=== PATIENT | female | born 1940 | race Asian ===

== ENCOUNTER 2022-10-14 18:16 | Inpatient (IN) | payer MEDICARE, OTHER ==
[~2022-10-14] VITALS: Ht 152.4 cm; Wt 64.4 kg
--- NOTE | 2022-10-14 18:45 | NUR ---
Pt BIBA from [facility] with c/o altered mentation and probable UTI per Dr. Vidales. Pt is AOx1. Denies n/v, headache. Ambulatory. Continent x2.
[2022-10-14] MEDS ORDERED: CLOP75TA33 PO (18:49)
[2022-10-14] MEDS ORDERED: GABA-532 PO (18:49)
[2022-10-14] MEDS ORDERED: LOSA100T3 PO (18:49)
[2022-10-14] MEDS ORDERED: MEMA1CAP3 PO (18:49)
[2022-10-14] MEDS ORDERED: FERR325T28 PO (18:49)
[2022-10-14] MEDS ORDERED: MULT-594 PO (18:49)
[2022-10-14] MEDS ORDERED: SODIUM CHLORIDE PO (18:49)
[2022-10-14] MEDS ORDERED: CALC1TAB30 PO (18:49)
[2022-10-14] MEDS ORDERED: ROSU10TA2 PO (18:49)
[2022-10-14] MEDS ORDERED: POLY17PO4 PO (18:49)
--- NOTE | 2022-10-14 19:10 | NUR ---
Endorsed to Vijaya MEDRANO.
[2022-10-14] MEDS ORDERED: CLON0.1T PO (19:33)
[2022-10-14] MEDS ORDERED: BISA10SU61 RC (19:33)
[2022-10-14] MEDS ORDERED: ALBU18HF2 INH (19:33)
[2022-10-14] MEDS ORDERED: ASCO500T10 PO (19:33)
[2022-10-14] MEDS ORDERED: NA P133E RC (19:33)
[2022-10-14] MEDS ORDERED: MAGN400O6 PO (19:33)
[2022-10-14] MEDS ORDERED: CHOL100045 PO (19:33)
[2022-10-14] MEDS ORDERED: MELA5TAB PO (19:33)
[2022-10-14] MEDS ORDERED: GLUC1KIT IM (19:33)
[2022-10-14] MEDS ORDERED: AMLO10TA4 PO (19:33)
[2022-10-14 21:00] LABS: *BILIRUBIN,URIN NEGATIVE (NEGATIVE); *BLOOD, URINE TRACE (NEGATIVE); *CLARITY,URINE CLEAR (CLEAR); *COLOR,URINE YELLOW (YELLOW); *KETONES,URINE NEGATIVE (NEGATIVE); *UROBILINOGEN,URINE 0.2 E.U./dl (NORMAL); LEUKOCYTE ESTERASE ,URINE 1+ (NEGATIVE); NITRITE, URINE NEGATIVE (NEGATIVE); UGLUCOSE NEGATIVE (NEGATIVE)
[2022-10-14 21:20] LABS: CREATININE 0.8 mg/dL (0.6-1.3); HEMATOCRIT 39.1 % (31.2-41.9); MEAN CORPUSCULAR HEMOGLOBIN 31.2 uug (24.7-32.8); MEAN CORPUSCULAR VOLUME 94.9 fL (75.5-95.3); PLATELET COUNT (AUTO) 290 K/uL (179-408); POTASSIUM 3.9 mmol/L (3.5-5.1)
[2022-10-14 21:36] LABS: RBC,URINE 0-3 /HPF (0-3)
[2022-10-14 21:37] LABS: BACTERIA,URINE MANY /HPF (NONE SEEN); SQUAMOUS EPITHELIAL CELL,UR FEW /HPF (NONE SEEN)
--- NOTE | 2022-10-14 21:53 | NUR ---
Patient ambulated to the bathroom 1 person assist. Voided clear yellow urine.
[2022-10-14] MEDS ORDERED: BISACODYL 10 MG SUPP.RECT RC PRN (22:00)
[2022-10-14] MEDS ORDERED: CLONIDINE HCL 0.1 MG TABLET PO PRN (22:00)
[2022-10-14] MEDS ORDERED: FLEET ENEMA 133 ML BOTTLE RC PRN (22:00)
[2022-10-14] MEDS ORDERED: MAGNESIUM HYDROXIDE 30 ML LIQUID UDC PO PRN (22:00)
--- NOTE | 2022-10-14 22:05 | NUR ---
Spoke to Lela MEDRANO. Patient will be admitted to 2nd floor Room 208
[2022-10-14] MEDS ORDERED: ONDANSETRON 4 MG/2 ML VIAL IV PRN (22:15)
[2022-10-14] MEDS ORDERED: ACETAMINOPHEN 650 MG SUPP.RECT RC PRN (22:15)
--- NOTE | 2022-10-14 23:01 | NUR ---
Called 2nd floor to give report to Tootie MEDRANO. Waiting for call back.
--- NOTE | 2022-10-14 23:15 | NUR ---
Gave report to Tootie MEDRANO
[2022-10-15] MEDS ORDERED: levoFLOXacin 500 MG/D5W 500 MG in PREMIXED 1 EACH IV SCH ×2
--- NOTE | 2022-10-15 00:01 | NUR ---
Patient taken to second floor room 208 with personal belongings. Tootie MEDRANO aware of patients arrival.
[2022-10-15 00:20] VITALS: BP 172/85
[2022-10-15] MEDS ORDERED: levoFLOXacin 500 MG/D5W 100 ML ONE (00:20)
--- NOTE | 2022-10-15 00:30 | NUR ---
Admitted a 82 years old female with Dx of Severe UTI, ALOC 2ndary to metabolic encephalopathy and possible sepsis. Patient AAO to self only but is able to follow simple direction. Mainly Tagalog speaking but can understand some Turkmen. In no apparent distress. Denies any pain or SOB. IV site on left wrist intact and patent. Routine admission care done. Plan of care initiated. Safety measure initiated and call light within reached.
[2022-10-15 05:09] VITALS: BP 174/80
--- NOTE | 2022-10-15 05:38 | NUR ---
Patient slept well since admission. Denies any pain or SOB. On O2 at 2LPM via NC in place. Noted with occasional non-productive cough. IV site on left wrist remains intact and patent. No adverse reaction noted from IV antibiotic. Needs assessed and attended to. Safety measure maintained and call light within reached.
[2022-10-15 07:10] LABS: HEMATOCRIT 38.8 % (31.2-41.9); MEAN CORPUSCULAR HEMOGLOBIN 31.5 uug (24.7-32.8); MEAN CORPUSCULAR VOLUME 95.4 fL (75.5-95.3); PLATELET COUNT (AUTO) 282 K/uL (179-408)
[2022-10-15 07:35] LABS: CREATININE 0.8 mg/dL (0.6-1.3); MAGNESIUM 2.1 mg/dL (1.8-2.4); PHOSPHOROUS 3.7 mg/dL (2.5-4.9); POTASSIUM 3.8 mmol/L (3.5-5.1)
[2022-10-15] MEDS: CLOPIDOGREL 75 MG TABLET PO SCH (08:16)
[2022-10-15] MEDS: MEMANTINE HCL 10 MG TABLET PO SCH ×2 (08:17→20:36)
[2022-10-15] MEDS: MIRALAX 17 GM POWD.PACK PO SCH (08:17)
[2022-10-15] MEDS: AMLODIPINE 10 MG TABLET PO SCH (08:17)
[2022-10-15] MEDS: ASCORBIC ACID 500 MG TABLET PO SCH ×2 (08:17→16:35)
[2022-10-15] MEDS: MULTIVITAMINS,THERAPEUTIC TABLET PO SCH (08:17)
[2022-10-15] MEDS: LOSARTAN POTASSIUM 50 MG TABLET PO SCH (08:19)
[2022-10-15] MEDS: SODIUM CHLORIDE 1,000 MG TABLET PO SCH ×2 (08:24→16:45)
[2022-10-15] MEDS: FERROUS SULFATE SLOW RELEASE 45 MG (ELEMENTAL) TABEC PO SCH ×2 (08:25→16:42)
[2022-10-15 11:10] VITALS: BP 160/85
--- NOTE | 2022-10-15 16:00 | NUR ---
Pt. has been stable through out the shift. No change of condition noted. Able to make the need known. Compliance with the care given. All need attended and met. Call light within reach. Will keep monitoring the patient.
[2022-10-15 16:15] VITALS: BP 159/71
[2022-10-15] MEDS ORDERED: Medication Not On Formulary EA (Melatonin 1 TAB) PO SCH (18:00)
[2022-10-15] MEDS: ALBUTEROL SULFATE 2.5 MG/3 ML NEBU INH SCH (19:30)
--- NOTE | 2022-10-15 19:30 | NUR ---
Received patient lying in bed. Asleep but easily arouse to verbal stimuli. AOx1 only. In no apparent distress. Denies any pain or SOB. No coughing noted at this time. IV site on left wrist intact and patent. Needs assessed and attended to. Safety measure initiated and call light within reached.
[2022-10-15 20:00] VITALS: BP 126/64
[2022-10-15] MEDS: DONEPEZIL 10 MG TABLET PO SCH (20:36)
[2022-10-15] MEDS: GABAPENTIN 100 MG CAPSULE PO SCH (20:36)
[2022-10-15] MEDS: ATORVASTATIN 20 MG TABLET PO SCH (20:36)
[2022-10-15] MEDS: MELATONIN 3 MG TABLET PO SCH (20:37)
[2022-10-15] MEDS ORDERED: Medication Not On Formulary EA (Memantine HCl/Donepezil HCl (Namzaric 28 mg-10 mg Capsul PO SCH (21:00)
--- NOTE | 2022-10-15 21:43 | NUR ---
PATIENT GETS A MDI NOT A NEB RX, CAN BE GIVEN BY NURSING. Jax ASHLEYP Addendum: 10/15/22 at 2144 by TJ RAMOS RT Amended: Links added.
[2022-10-15] MEDS: LEVOFLOXACIN/D5W 250 MG in PREMIX 1 EA IV SCH (23:53)
--- NOTE | 2022-10-16 00:36 | NUR ---
Patient accidentally pulled out IV on left wrist area. Started new IV on left FA #22G. Continue to infuse Levaquin IV.
[2022-10-16 05:01] VITALS: BP 122/64
--- NOTE | 2022-10-16 07:00 | NUR ---
Patient slept well during the night. Denies any pain or SOB. No coughing noted the entire shift. IV site on left FA accidentally pulled by patient. new IV placed on left hand #22G. No adverse reaction noted from IV antibiotic. Needs attended to and met. Safety measure maintained and call light within reached.
[2022-10-16 08:05] LABS: HEMATOCRIT 39.6 % (31.2-41.9); MEAN CORPUSCULAR HEMOGLOBIN 31.2 uug (24.7-32.8); MEAN CORPUSCULAR VOLUME 95.6 fL (75.5-95.3); PLATELET COUNT (AUTO) 275 K/uL (179-408)
[2022-10-16 08:18] LABS: CREATININE 0.8 mg/dL (0.6-1.3); MAGNESIUM 2.3 mg/dL (1.8-2.4); PHOSPHOROUS 4.3 mg/dL (2.5-4.9); POTASSIUM 3.9 mmol/L (3.5-5.1)
[2022-10-16] MEDS: SODIUM CHLORIDE 1,000 MG TABLET PO SCH ×2 (09:00→18:18)
[2022-10-16] MEDS: MIRALAX 17 GM POWD.PACK PO SCH (09:56)
[2022-10-16] MEDS: ASCORBIC ACID 500 MG TABLET PO SCH ×2 (09:57→18:18)
[2022-10-16] MEDS: MULTIVITAMINS,THERAPEUTIC TABLET PO SCH (09:57)
[2022-10-16] MEDS: MEMANTINE HCL 10 MG TABLET PO SCH ×2 (09:57→21:08)
[2022-10-16] MEDS: CLOPIDOGREL 75 MG TABLET PO SCH (09:57)
[2022-10-16] MEDS: LOSARTAN POTASSIUM 50 MG TABLET PO SCH (09:58)
[2022-10-16] MEDS: AMLODIPINE 10 MG TABLET PO SCH (09:58)
[2022-10-16] MEDS: FERROUS SULFATE SLOW RELEASE 45 MG (ELEMENTAL) TABEC PO SCH ×2 (10:04→18:18)
[2022-10-16 12:58] VITALS: BP 144/70
[2022-10-16] MEDS ORDERED: LEVO500T90 PO (13:07)
[2022-10-16] MEDS ORDERED: DONE10TA44 PO (13:07)
[2022-10-16] MEDS ORDERED: MEMA10TA PO (13:07)
[2022-10-16 16:31] VITALS: BP 136/68
[2022-10-16 20:00] VITALS: BP 141/67
[2022-10-16] MEDS: ALBUTEROL SULFATE 2.5 MG/3 ML NEBU INH SCH (20:30)
[2022-10-16] MEDS: DONEPEZIL 10 MG TABLET PO SCH (21:07)
[2022-10-16] MEDS: ATORVASTATIN 20 MG TABLET PO SCH (21:08)
[2022-10-16] MEDS: MELATONIN 3 MG TABLET PO SCH (21:08)
[2022-10-16] MEDS: GABAPENTIN 100 MG CAPSULE PO SCH (21:08)
[2022-10-16] MEDS: LEVOFLOXACIN/D5W 250 MG in PREMIX 1 EA IV SCH (23:48)
[2022-10-17 04:00] VITALS: BP_SYST 149; BP_SYST 152; BP_DIAS 72; BP_DIAS 80
[2022-10-17 08:31] VITALS: BP 115/66
[2022-10-17] MEDS: ASCORBIC ACID 500 MG TABLET PO SCH (08:31)
[2022-10-17] MEDS: LOSARTAN POTASSIUM 50 MG TABLET PO SCH (08:31)
[2022-10-17] MEDS: AMLODIPINE 10 MG TABLET PO SCH (08:31)
[2022-10-17] MEDS: MIRALAX 17 GM POWD.PACK PO SCH (08:31)
[2022-10-17] MEDS: CLOPIDOGREL 75 MG TABLET PO SCH (08:31)
[2022-10-17] MEDS: FERROUS SULFATE SLOW RELEASE 45 MG (ELEMENTAL) TABEC PO SCH (08:31)
[2022-10-17] MEDS: SODIUM CHLORIDE 1,000 MG TABLET PO SCH (08:31)
[2022-10-17] MEDS: MULTIVITAMINS,THERAPEUTIC TABLET PO SCH (08:31)
[2022-10-17] MEDS: MEMANTINE HCL 10 MG TABLET PO SCH (08:31)
[2022-10-17 08:52] LABS: HEMATOCRIT 38.6 % (31.2-41.9); MEAN CORPUSCULAR VOLUME 95.6 fL (75.5-95.3); PLATELET COUNT (AUTO) 297 K/uL (179-408)
[2022-10-17 09:03] LABS: CREATININE 0.7 mg/dL (0.6-1.3); POTASSIUM 4.1 mmol/L (3.5-5.1)
--- NOTE | 2022-10-17 10:25 | NUR ---
dc orders received noted and carried out,esme chapin per md orders.rn report given to the [facility] ,esme pt to [facility] via ambulances in stable condition
== END 2022-10-17 10:31 | DRG 689 ==
LOC: ER 18:16 → MED 22:10 → MEDSURG3 10-17 06:11
PROVIDERS: ADMIT Internal Medicine; ATTEND Internal Medicine
DX: N39.0 Urinary tract infection, site not specified (principal); G93.41 Metabolic encephalopathy; E87.1 Hypo-osmolality and hyponatremia; G30.9 Alzheimer's disease, unspecified; F02.80 Dementia in other diseases classified elsewhere, unspecified severity, without behavioral disturbance, psychotic disturbance, mood disturbance, and anxiety; K59.00 Constipation, unspecified; Z86.16 Personal history of COVID-19; Z88.0 Allergy status to penicillin; Z88.2 Allergy status to sulfonamides; J44.9 Chronic obstructive pulmonary disease, unspecified; E11.42 Type 2 diabetes mellitus with diabetic polyneuropathy; D50.9 Iron deficiency anemia, unspecified; J45.909 Unspecified asthma, uncomplicated; E78.5 Hyperlipidemia, unspecified; I10 Essential (primary) hypertension; K21.9 Gastro-esophageal reflux disease without esophagitis; Z20.822 Contact with and (suspected) exposure to COVID-19
CPT/HCPCS: 36415; 83550; 83735; 84100; 85025; 87040; 93005; G0378; J1956